=== PATIENT | male | born 1955 | race Caucasian/White ===

== ENCOUNTER 2016-11-02 16:07 | Inpatient (IN) | payer BC ==
--- NOTE | ~2016-11-02 | HP ---
History And Physical [id number] [facility] [place]. [address] NAME: RAMESH PATEL : 53 STATUS : ADM [place] PAT#: [id number] AGE: 61 ADM/REG DATE : 11/02/16 MR#: [id number] REPORT SERV DATE: 11/03/16 DICTATED BY: LUIZA MATIAS DATE: 11/03/16 REPORT STATUS : Draft TRANSCRIBED BY: SHELLY DATE: 11/03/16 DATE OF ADMISSION: 11/02/2016 Javier Anna M.D. CHIEF COMPLAINT: Chest pain. HISTORY OF PRESENT ILLNESS: This is a 61-year-old morbidly obese gentleman with a history of coronary artery disease, status post stent in 2002 to the left circumflex as well as recurrent DVTs and history of PE on chronic anticoagulation with Eliquis. He describes "burning" to his chest, noticed more with walking and exertion at his job over the last five days. Yesterday, the pain occurred again at work. He was scheduled to do some lab work for the [facility] here at [facility], and the spoke with the staff there, and they recommended him to go to the emergency department. The patient states the chest pain is substernal and does not radiate. He was given some nitroglycerin paste in the emergency department, and there has been no further reoccurrence of his symptoms. His troponins have been 0.05 x 3. The patient was seen by Dr. Anna in the office on 10/27/2016 with no complaints of chest pain at that time. He was started on hydrochlorothiazide as well as Cardura for better blood pressure control as well as the patient's chronic venous insufficiency and lymphedema. He states he has noticed a little improvement to his edema. He does state compliance with all of his medications including Eliquis, last dose was in the evening last night. MEDICAL HISTORY: 1. Recurrent DVTs as well as history of PE in 07/2015, on chronic Eliquis therapy. 2. Type 2 diabetes mellitus, insulin dependent. 3. Hypertension. 4. Mixed hyperlipidemia. 5. Coronary artery disease, status post drug-eluting stent to left circumflex in 2002. 6. Obstructive sleep apnea, compliant with CPAP therapy. 7. Chronic lower extremity lymphedema and venous insufficiency. 8. Morbid obesity with a BMI of 56. SURGICAL HISTORY: Right knee arthroscopy. HOME MEDICATIONS: Norvasc 5 every morning, Eliquis 5 b.i.d., aspirin 81 q.h.s., Lotensin 40 every morning, Cardura 4 mg q.h.s., hydrochlorothiazide 12.5 every morning, insulin Humulin R 200 units every morning and 230 units every evening, Afrin nasal spray p.r.n. congestion, Crestor 5 mg q.h.s., and ocean nasal spray as needed. ALLERGIES: NO KNOWN DRUG ALLERGIES. SOCIAL HISTORY: The patient is . He works for the [employer]. He quit smoking tobacco approximately 35 years ago. Denies alcohol or illicit drug use. He has four children. History And Physical [address] [address] NAME: RAMESH PATEL : 53 STATUS : ADM [place] PAT#: [id number] AGE: 61 ADM/REG DATE : 11/02/16 MR#: [id number] REPORT SERV DATE: 11/03/16 DICTATED BY: LUIZA MATIAS DATE: 11/03/16 REPORT STATUS : Draft TRANSCRIBED BY: SHELLY DATE: 11/03/16 FAMILY HISTORY: Father of an OK at age 54. REVIEW OF SYSTEMS: Negative except as indicated above. PHYSICAL EXAMINATION: VITAL SIGNS: Blood pressure 147/94, heart rate 70, temperature 98.2, pulse oximetry 95% room air. BMI 56.7. GENERAL: Well developed, well nourished, in no acute distress HEENT: Anicteric. Normal EOM. Head normocephalic. PERRLA, no xanthelasma. NECK: Supple. No JVD. Carotids normal without bruits. LUNGS: Clear to auscultation bilaterally anterior and posterior. Respirations even and unlabored. CARDIAC: S1, S2 regular rate and rhythm. No murmurs, rubs, or gallops. No chest wall tenderness. ABDOMEN: Normal bowel sounds. Soft and nontender to palpation. No masses or organomegaly. EXTREMITIES: 2+ to 3+ edema with signs of chronic venous insufficiency and excoriation particularly to the left lower extremity from scratching. No calf tenderness. SKIN: Warm and dry. Normal turgor. No pallor or cyanosis. MUSCULOSKELETAL: Moving all extremities x4. Normal muscle strength. NEURO/PSYCH: Alert and oriented with appropriate affect. LABORATORY DATA: White blood count 6.7, hemoglobin 15.3, hematocrit 44.9. Sodium 138, potassium 4.0, BUN 16, creatinine 0.8. Magnesium 1.7. Troponin 0.05 x 3. Chest x-ray shows no acute cardiopulmonary processes. EKGs interpreted by myself indicate normal sinus rhythm with nonspecific T-waves, no indication of ischemia. ASSESSMENT AND PLAN: 1. Exertional substernal chest pain in this 61-year-old male with a history of coronary artery disease, status post drug-eluting stent in 2002. His troponin has been only marginally elevated at 0.05, that has not significantly risen. His weight is 430 pounds preventing pursue of cardiac PET scanning. At this time, I recommend proceeding with a cardiac catheterization, but this will need to be done after the weekend as the patient did have a dose of Eliquis last evening. Dr. Baum to see the patient and discuss risks and benefits with him. Again, likely we will pursue cardiac catheterization on Sunday and hold Eliquis for one to two days prior. 2. History of coronary artery disease with stent in 2002. He does state compliance with his aspirin. He is not on a beta edgardo therapy, and he has only recently resumed his Crestor 5 mg q.h.s. We will plan to increase statin intensity. Continue aspirin. 3. History of deep venous thrombosis and pulmonary embolism. The patient does state absolute compliance with Eliquis therapy. There have been no signs of hypoxia along with this chest pain nor there have been any significant dyspnea at rest. 4. Chronic venous insufficiency and lymphedema. Recently started on hydrochlorothiazide History And Physical [address] [address] NAME: RAMESH PATEL : 53 STATUS : ADM [place] PAT#: [id number] AGE: 61 ADM/REG DATE : 11/02/16 MR#: [id number] REPORT SERV DATE: 11/03/16 DICTATED BY: LUIZA MATIAS DATE: 11/03/16 REPORT STATUS : Draft TRANSCRIBED BY: MODL DATE: 11/03/16 and Jean. We will continue. 5. Type 2 diabetes mellitus, insulin dependent. We will continue patient's home regimen of insulin as well as institute level 2 sliding-scale insulin protocol. 6. Hypertension, blood pressure appears controlled. Continue home medications. DBT/MODL Luiza Matias NP / [id number] CC: Josy March, MSN, LITIGATION LEGAL SECRETARY-BC Ramesh Scales M.D. Javier Anna M.D.
--- NOTE | ~2016-11-02 | DS ---
Discharge Summary [facility] [address] [place]. [address] NAME: RAMESH PATEL : 53 STATUS : DIS IN PAT#: [id number] AGE: 61 ADM/REG DATE : 11/02/16 MR#: [id number] REPORT SERV DATE: 11/14/16 DICTATED BY: SHAKIR FLANNERY DATE: 11/14/16 REPORT STATUS : Draft TRANSCRIBED BY: SHELLY DATE: 11/14/16 Data Collection from hospitalization DISCHARGE DIAGNOSES: 1. Stable angina. 2. Coronary artery disease, status post drug-eluting stent to the right coronary artery. 3. History of deep vein thrombosis/pulmonary embolus. 4. Hypertension. 5. Insulin-dependent diabetes mellitus. 6. Obstructive sleep apnea. 7. Chronic lower extremity lymphedema and venous insufficiency. 8. Morbid obesity. 9. Past history of tobacco use. CONSULTATIONS: None. PROCEDURES PERFORMED: 1. Cardiac catheterization and percutaneous coronary intervention on 11/06/2016. 2. Myocardial perfusion imaging study on 11/03/2016. MEDICATIONS: Norvasc 5 mg every morning, Eliquis 5 mg twice a day, aspirin 81 mg at bedtime, Lotensin 40 mg every morning, Coreg 3.125 mg twice a day, Plavix 75 mg daily, Cardura 4 mg at bedtime, hydrochlorothiazide 12.5 mg every morning, Humulin R 200 units subcutaneously every morning and 230 units subcutaneously at bedtime, Nitrostat 0.4 mg sublingually as needed, Afrin nasal spray one to two sprays nasally every 12 hours, Crestor 20 mg daily, [place] nasal spray to two sprays nasally every 12 hours as needed, and [id number] allergy tablet one tablet at bedtime. CONDITION AT DISCHARGE: Stable. DISPOSITION: The patient was discharged home on a low-cholesterol, low-sodium, 1800-calorie cardiac/diabetic diet with activities as instructed. He would follow up with Dr. Ramesh Scales on 11/14/2016. He would follow up with Dr. Parveen Wellington as instructed. He would follow up for PCI on 11/15/2016. He would stop his Eliquis on 11/13/2016, 11/14/2016, and 11/15/2016. HOSPITAL COURSE: This is a 61-year-old morbidly obese man who has a history of coronary artery disease and is status post stent in 2002 to the left circumflex as well as recurrent deep venous thromboses and a history of pulmonary embolus, on chronic anticoagulation with Eliquis. He described having some "burning" to his chest that he noticed more with walking and exertion at his job over the last five days prior to admission. On the day prior to this admission, the pain occurred again at work. He was scheduled to do some lab work for the [facility] here at [facility]. The staff there recommended that he go to the emergency department. He states that the chest pain was substernal and did not radiate. He was given some nitroglycerin paste in the emergency department. There had been no further recurrence of his symptoms. Troponin had been 0.05 x3. He had been seen by Dr. Anna in the office on 10/27/2016 with no complaints of chest pain at that time. He was started on hydrochlorothiazide as well as Cardura for better blood pressure control as well Discharge Summary [address] [address] NAME: RAMESH PATEL : 53 STATUS : DIS IN PAT#: [id number] AGE: 61 ADM/REG DATE : 11/02/16 MR#: [id number] REPORT SERV DATE: 11/14/16 DICTATED BY: SHAKIR FLANNERY DATE: 11/14/16 REPORT STATUS : Draft TRANSCRIBED BY: SHELLY DATE: 11/14/16 as chronic venous insufficiency and lymphedema. He said that he noticed a little improvement to his edema. He has compliance with all of his medications including Eliquis, according to the patient, he said his last dose was in the evening on the night prior to this admission. He was admitted to the hospital for further evaluation and treatment. Upon admission, his weight of 430 pounds prevented pursuit of cardiac PET scanning. It was felt that he would need to undergo a cardiac catheterization. Eliquis would be held one to two days prior. Aspirin was continued. He had recently resumed his Crestor. He was not on beta-edgardo therapy. We would increase his statin intensity. He had recently been started on hydrochlorothiazide and Cardura, and these were continued. Level 2 sliding scale insulin was started as well as the patient's home regimen of insulin. His blood pressure appears controlled. His home medications were continued. The following day, a myocardial perfusion imaging study was performed. This demonstrated inferior and apical ischemia. Medium-sized reversible inferior and apical defects were seen suggestive of ischemia. Post infusion left ventricular ejection fraction was 51%. On 11/04/2016, he had no chest pain or shortness of breath overnight. Hemoglobin A1c was 7.7. He was in a normal sinus rhythm. The next day, he had no chest pain overnight. He had no shortness of breath. He was in a normal sinus rhythm/sinus bradycardia on telemetry. Heparin drip was going to be started while Eliquis was on hold. Hydrochlorothiazide had not been restarted. His blood pressure was controlled. On 11/06/2016, he was taken to the cardiac manager labor delivery where he underwent the above-mentioned procedure. He tolerated this well, and there were no complications. The patient has obstructive coronary artery disease with 90% proximal RCA, 60%-70% mid LAD, and left main circumflex artery/left circumflex nonobstructive. He had PTCA with drug-eluting stent to the proximal RCA. We were going to consider a staged percutaneous coronary intervention to the LAD at a future date if his symptoms persist. Intervention was deferred at this time to minimize excessive radiation exposure. He had no chest pain or shortness of breath. He was going to undergo his staged percutaneous coronary intervention the following week. Discharge instructions were given. Due to his improved and stable condition, he was discharged home with the above-stated instructions. Information collected by: Morenita Lui I submit the above information as my discharge summary. TG/SHELLY Shakir Flannery MD / [id number] CC: Phyllis Lagos M.D.
[2016-11-02 13:56] LABS: BASOPHILS 0.3 %; BASOPHILS ABSOLUTE 0.02 10/3/uL (0.0-0.16); EOSINOPHILS 1.2 %; EOSINOPHILS ABSOLUTE 0.08 10/3/uL (0.0-0.53); HEMATOCRIT 44.9 % (40.0-51.0); HEMOGLOBIN 15.3 g/dL (13.6-17.8); IMMATURE GRANULOCYTES 0.4 %; IMMATURE GRANULOCYTES ABSOLUTE 0.03 10/3/uL (0.0-0.11); LYMPHOCYTES 17.2 %; LYMPHOCYTES ABSOLUTE 1.15 10/3/uL (0.67-4.30); MEAN CORPUS HGB CONC 34.1 g/dL (32.0-36.0); MEAN CORPUSCULAR HEMOGLOB 30.5 pg (26.0-34.0); MEAN CORPUSCULAR VOLUME 89.4 fL (80-100); MEAN PLATELET VOLUME 10.2 fL (9.2-13.0); MONOCYTES 7.8 %; MONOCYTES ABSOLUTE 0.52 10/3/uL (0.21-1.20); NEUTROPHILS 73.1 %; NEUTROPHILS ABSOLUTE 4.88 10/3/uL (2.02-8.40); PLATELET COUNT 198 10/3/uL (150-400); RBC DISTRIBUTION WIDTH 13.8 % (12.0-16.0); RED CELL COUNT 5.02 10/6/uL (4.7-6.1); WHITE BLOOD CELLS 6.7 10/3/uL (4.5-10.5)
[2016-11-02 13:59] LABS: MANUAL DIFF NO %
[2016-11-02 14:08] LABS: INTERNATIONAL NORMAL RATI 1.1 UNITS (-); PARTIAL THROMBO TIME 28.1 SEC (22.5-37.2); PROTIME (NOT ORD) 14.3 SEC (12.0-14.5)
[2016-11-02 14:11] LABS: BUN (BLOOD UREA NITROGEN) 16 MG/DL (6-23); CALCIUM, SERUM 8.8 MG/DL (8.5-10.4); CHLORIDE, SERUM 101 MMOL/L (96-112); CO2 (CARBON DIOXIDE) 28 MMOL/L (24-34); CREATININE 0.89 MG/DL (0.70-1.30); GFR AFRICAN AMERICAN 106 ML/MIN (>=60); GFR NON AFRICAN AMERICAN 92 ML/MIN (>=60); SODIUM, SERUM 138 MMOL/L (135-148)
[2016-11-02 14:12] LABS: CHEST PAIN PROFILE TAT 0 Hrs 20 Mins; GLUCOSE, SERUM 169 MG/DL (60-99); TROPONIN I 0.05 NG/ML (<0.05)
[~2016-11-02 16:07] MED LIST: AFRIN15 NAS; ASAB PO; BENZAPRIL PO; CLARIT10 PO; COUMADIN7.5 MG PO; CRESTOR40 MG PO; CRESTOR5 MG PO; DIABET2.5 PO; ELIQUIS 5 MG TAB5 MG PO; GLUCOPHAGE1000 MG PO; HALF81 PO; HUMULIN R U-500 SC; HUMULIN500CONC SC; L40 PO; LOTE40 PO; MOBIC7.5 PO; NORV5 PO; OCEAN NAS; OTC ALLERGY TABLET PO; TRILIPIX135 MG PO; WARFARIN PO; ZOCOR40 PO
[2016-11-02] MEDS ORDERED: CARDU2 PO (16:10)
[2016-11-02] MEDS ORDERED: HYDROCHLOROT12.5 MG PO (16:10)
[2016-11-05 07:34] LABS: BUN (BLOOD UREA NITROGEN) 14 MG/DL (6-23); CHLORIDE, SERUM 105 MMOL/L (96-112); CO2 (CARBON DIOXIDE) 29 MMOL/L (24-34); CREATININE 0.78 MG/DL (0.70-1.30); GFR AFRICAN AMERICAN 112 ML/MIN (>=60); GFR NON AFRICAN AMERICAN 97 ML/MIN (>=60); POTASSIUM, SERUM 4.1 MMOL/L (3.5-5.3); SODIUM, SERUM 139 MMOL/L (135-148)
[2016-11-05 07:35] LABS: GLUCOSE, SERUM 106 MG/DL (60-99)
[2016-11-05 07:44] LABS: BASOPHILS 0.4 %; BASOPHILS ABSOLUTE 0.02 10/3/uL (0.0-0.16); EOSINOPHILS 3.6 %; HEMATOCRIT 45.3 % (40.0-51.0); HEMOGLOBIN 15.2 g/dL (13.6-17.8); IMMATURE GRANULOCYTES 0.7 %; IMMATURE GRANULOCYTES ABSOLUTE 0.04 10/3/uL (0.0-0.11); LYMPHOCYTES 21.3 %; LYMPHOCYTES ABSOLUTE 1.18 10/3/uL (0.67-4.30); MEAN CORPUS HGB CONC 33.6 g/dL (32.0-36.0); MEAN CORPUSCULAR HEMOGLOB 30.1 pg (26.0-34.0); MEAN CORPUSCULAR VOLUME 89.7 fL (80-100); MEAN PLATELET VOLUME 10.2 fL (9.2-13.0); MONOCYTES 9.2 %; MONOCYTES ABSOLUTE 0.51 10/3/uL (0.21-1.20); NEUTROPHILS 64.8 %; NEUTROPHILS ABSOLUTE 3.58 10/3/uL (2.02-8.40); PLATELET COUNT 192 10/3/uL (150-400); RBC DISTRIBUTION WIDTH 13.7 % (12.0-16.0); RED CELL COUNT 5.05 10/6/uL (4.7-6.1); WHITE BLOOD CELLS 5.5 10/3/uL (4.5-10.5)
[2016-11-05 07:47] LABS: MANUAL DIFF NO %
[2016-11-06 06:13] LABS: BASOPHILS 0.5 %; BASOPHILS ABSOLUTE 0.03 10/3/uL (0.0-0.16); EOSINOPHILS 2.5 %; EOSINOPHILS ABSOLUTE 0.16 10/3/uL (0.0-0.53); HEMATOCRIT 44.3 % (40.0-51.0); HEMOGLOBIN 15.3 g/dL (13.6-17.8); IMMATURE GRANULOCYTES 0.8 %; IMMATURE GRANULOCYTES ABSOLUTE 0.05 10/3/uL (0.0-0.11); LYMPHOCYTES 20.8 %; LYMPHOCYTES ABSOLUTE 1.31 10/3/uL (0.67-4.30); MEAN CORPUS HGB CONC 34.5 g/dL (32.0-36.0); MEAN CORPUSCULAR HEMOGLOB 31.3 pg (26.0-34.0); MEAN CORPUSCULAR VOLUME 90.6 fL (80-100); MONOCYTES 7.8 %; MONOCYTES ABSOLUTE 0.49 10/3/uL (0.21-1.20); NEUTROPHILS 67.6 %; NEUTROPHILS ABSOLUTE 4.26 10/3/uL (2.02-8.40); PLATELET COUNT 184 10/3/uL (150-400); RBC DISTRIBUTION WIDTH 13.6 % (12.0-16.0); RED CELL COUNT 4.89 10/6/uL (4.7-6.1); WHITE BLOOD CELLS 6.3 10/3/uL (4.5-10.5)
[2016-11-06 06:20] LABS: MANUAL DIFF NO %
[2016-11-06 06:26] LABS: BUN (BLOOD UREA NITROGEN) 16 MG/DL (6-23); CALCIUM, SERUM 8.7 MG/DL (8.5-10.4); CHLORIDE, SERUM 104 MMOL/L (96-112); CHOL/HDL RATIO(NOT ORDER) 3.2 (0-5); CHOLESTEROL 112 MG/DL (< 200); CO2 (CARBON DIOXIDE) 25 MMOL/L (24-34); GFR AFRICAN AMERICAN 111 ML/MIN (>=60); GFR NON AFRICAN AMERICAN 96 ML/MIN (>=60); HDL CHOLESTEROL 35 MG/DL (> 39); LDL CHOLESTEROL 49 MG/DL (< 130); NON-HDL CHOLESTEROL 77 MG/DL (< 160); POTASSIUM, SERUM 3.9 MMOL/L (3.5-5.3); SODIUM, SERUM 139 MMOL/L (135-148)
[2016-11-06 06:28] LABS: GLUCOSE, SERUM 220 MG/DL (60-99); TRIGLYCERIDE 143 MG/DL (< 150)
[2016-11-06] MEDS ORDERED: COREG6 PO (13:05)
[2016-11-06] MEDS ORDERED: CRESTOR20 MG PO (13:06)
[2016-11-06] MEDS ORDERED: PLAVIX PO (13:07)
[2016-11-06] MEDS ORDERED: NITROSTAT0.4 MG SL (13:08)
[2016-11-06 15:55] LABS: HEMATOCRIT 44.4 % (40.0-51.0); HEMOGLOBIN 15.3 g/dL (13.6-17.8)
[2016-11-06 16:09] LABS: BUN (BLOOD UREA NITROGEN) 14 MG/DL (6-23); CALCIUM, SERUM 8.5 MG/DL (8.5-10.4); CHLORIDE, SERUM 106 MMOL/L (96-112); CHOL/HDL RATIO(NOT ORDER) 3.5 (0-5); CHOLESTEROL 112 MG/DL (< 200); CO2 (CARBON DIOXIDE) 23 MMOL/L (24-34); CREATININE 0.75 MG/DL (0.70-1.30); GFR AFRICAN AMERICAN 114 ML/MIN (>=60); GFR NON AFRICAN AMERICAN 98 ML/MIN (>=60); GLUCOSE, SERUM 186 MG/DL (60-99); HDL CHOLESTEROL 32 MG/DL (> 39); LDL CHOLESTEROL 41 MG/DL (< 130); NON-HDL CHOLESTEROL 80 MG/DL (< 160); POTASSIUM, SERUM 3.9 MMOL/L (3.5-5.3); SGPT(ALT) 47 U/L (5-65); SODIUM, SERUM 138 MMOL/L (135-148)
[2016-11-06 16:10] LABS: TRIGLYCERIDE 197 MG/DL (< 150)
[2016-11-14] MEDS ORDERED: VIAGRA25 PO (13:41)
== END 2016-11-06 17:56 | disposition home or self-care (01) | DRG 247 ==
LOC: ER 16:07 → CDU1 16:41 → SSU1 11-06 09:59
PROVIDERS: Emergency Medicine; Internal Medicine Cardiovascular Disease; Nurse Practitioner
PROC: 027034Z Dilation of Coronary Artery, One Artery with Drug-eluting Intraluminal Device, Percutaneous Approach (ICD-10-PCS; principal; 2016-11-06)
PROC: 4A023N7 Measurement of Cardiac Sampling and Pressure, Left Heart, Percutaneous Approach (ICD-10-PCS; 2016-11-06)
PROC: B2151ZZ Fluoroscopy of Left Heart using Low Osmolar Contrast (ICD-10-PCS; 2016-11-06)
PROC: B2111ZZ Fluoroscopy of Multiple Coronary Arteries using Low Osmolar Contrast (ICD-10-PCS; 2016-11-06)
DX: I25.118 Atherosclerotic heart disease of native coronary artery with other forms of angina pectoris (principal); Z99.81 Dependence on supplemental oxygen; Z68.43 Body mass index [BMI] 50.0-59.9, adult; I87.2 Venous insufficiency (chronic) (peripheral); E11.9 Type 2 diabetes mellitus without complications; I10 Essential (primary) hypertension; E66.01 Morbid (severe) obesity due to excess calories; E78.2 Mixed hyperlipidemia; G47.33 Obstructive sleep apnea (adult) (pediatric); Z87.891 Personal history of nicotine dependence; Z82.49 Family history of ischemic heart disease and other diseases of the circulatory system; Z79.01 Long term (current) use of anticoagulants; Z95.5 Presence of coronary angioplasty implant and graft; Z86.718 Personal history of other venous thrombosis and embolism; Z86.711 Personal history of pulmonary embolism
CPT/HCPCS: 71020; 78452; 80048; 80061; 82962; 83036; 83735; 84460; 84484; 85014; 85018; 85025; 85610; 85730; 93005; 93017; 93458; 99152; 99153; 99285; A9270-GY; A9502; C1725; C1769; C1874; C1887; C1894; C9600; J0153; J0583; J2250; J3010; Q9967

== ENCOUNTER 2016-11-16 10:54 | Inpatient (IN) | payer BC ==
[~2016-11-16 10:54] MED LIST changes: +CARDU2 PO; +COREG6 PO; +CRESTOR20 MG PO; +HYDROCHLOROT12.5 MG PO; +NITROSTAT0.4 MG SL; +PLAVIX PO; +VIAGRA25 PO
[2016-11-16 11:47] LABS: BASOPHILS 0.3 %; BASOPHILS ABSOLUTE 0.02 10/3/uL (0.0-0.16); EOSINOPHILS 1.8 %; EOSINOPHILS ABSOLUTE 0.11 10/3/uL (0.0-0.53); HEMOGLOBIN 15.8 g/dL (13.6-17.8); IMMATURE GRANULOCYTES 0.5 %; IMMATURE GRANULOCYTES ABSOLUTE 0.03 10/3/uL (0.0-0.11); LYMPHOCYTES ABSOLUTE 1.03 10/3/uL (0.67-4.30); MEAN CORPUS HGB CONC 34.3 g/dL (32.0-36.0); MEAN CORPUSCULAR HEMOGLOB 30.6 pg (26.0-34.0); MEAN CORPUSCULAR VOLUME 89.1 fL (80-100); MEAN PLATELET VOLUME 10.1 fL (9.2-13.0); MONOCYTES 9.6 %; MONOCYTES ABSOLUTE 0.58 10/3/uL (0.21-1.20); NEUTROPHILS 70.8 %; NEUTROPHILS ABSOLUTE 4.28 10/3/uL (2.02-8.40); PLATELET COUNT 219 10/3/uL (150-400); RBC DISTRIBUTION WIDTH 13.7 % (12.0-16.0); RED CELL COUNT 5.16 10/6/uL (4.7-6.1); WHITE BLOOD CELLS 6.1 10/3/uL (4.5-10.5)
[2016-11-16 11:48] LABS: MANUAL DIFF NO %
[2016-11-16 12:01] LABS: BUN (BLOOD UREA NITROGEN) 13 MG/DL (6-23); CALCIUM, SERUM 8.5 MG/DL (8.5-10.4); CHLORIDE, SERUM 104 MMOL/L (96-112); CHOL/HDL RATIO(NOT ORDER) 2.8 (0-5); CHOLESTEROL 106 MG/DL (< 200); CO2 (CARBON DIOXIDE) 30 MMOL/L (24-34); CREATININE 0.95 MG/DL (0.70-1.30); GFR AFRICAN AMERICAN 99 ML/MIN (>=60); GFR NON AFRICAN AMERICAN 85 ML/MIN (>=60); GLUCOSE, SERUM 254 MG/DL (60-99); HDL CHOLESTEROL 38 MG/DL (> 39); LDL CHOLESTEROL 42 MG/DL (< 130); NON-HDL CHOLESTEROL 68 MG/DL (< 160); POTASSIUM, SERUM 4.1 MMOL/L (3.5-5.3); SODIUM, SERUM 139 MMOL/L (135-148); TRIGLYCERIDE 131 MG/DL (< 150)
[2016-11-17 05:39] LABS: HEMATOCRIT 43.6 % (40.0-51.0); HEMOGLOBIN 14.4 g/dL (13.6-17.8); MEAN CORPUSCULAR HEMOGLOB 30.3 pg (26.0-34.0); MEAN PLATELET VOLUME 10.2 fL (9.2-13.0); PLATELET COUNT 177 10/3/uL (150-400); RBC DISTRIBUTION WIDTH 13.8 % (12.0-16.0); RED CELL COUNT 4.75 10/6/uL (4.7-6.1); WHITE BLOOD CELLS 5.7 10/3/uL (4.5-10.5)
[2016-11-17 05:42] LABS: MANUAL DIFF YES %; MEAN CORPUSCULAR VOLUME 91.8 fL (80-100)
[2016-11-17 05:58] LABS: BUN (BLOOD UREA NITROGEN) 11 MG/DL (6-23); CALCIUM, SERUM 8.2 MG/DL (8.5-10.4); CHLORIDE, SERUM 107 MMOL/L (96-112); CHOLESTEROL 90 MG/DL (< 200); CREATININE 0.69 MG/DL (0.70-1.30); GFR AFRICAN AMERICAN 118 ML/MIN (>=60); GFR NON AFRICAN AMERICAN 102 ML/MIN (>=60); GLUCOSE, SERUM 227 MG/DL (60-99); LDL CHOLESTEROL 32 MG/DL (< 130); NON-HDL CHOLESTEROL 60 MG/DL (< 160); POTASSIUM, SERUM 3.9 MMOL/L (3.5-5.3); SODIUM, SERUM 140 MMOL/L (135-148); TRIGLYCERIDE 142 MG/DL (< 150)
[2016-11-17 06:00] LABS: CO2 (CARBON DIOXIDE) 25 MMOL/L (24-34); HDL CHOLESTEROL 30 MG/DL (> 39)
[2016-11-17 07:17] LABS: BAND NEUTROPHILS 1 %; EOSINOPHILS 1 %; EOSINOPHILS ABSOLUTE (CALC) 0.06 10/3/uL (0.0-0.53); LYMPHOCYTES 19 %; LYMPHOCYTES ABSOLUTE (CALC) 1.08 10/3/uL (0.67-4.30); MONOCYTES 9 %; MONOCYTES ABSOLUTE (CALC) 0.51 10/3/uL (0.21-1.20); NEUTROPHILS ABSOLUTE (CALC) 4.05 10/3/uL (2.02-8.40); PLATELET ESTIMATE ADQ (ADEQUATE); SEGMENTED NEUTROPHIL (0) 70 %; TOTAL NUCLEATED CELLS 100
[2016-11-17 07:18] LABS: RBC MORPHOLOGY NORM (NORMAL)
[2016-11-18 05:11] LABS: BASOPHILS 0.2 %; BASOPHILS ABSOLUTE 0.01 10/3/uL (0.0-0.16); EOSINOPHILS 2.2 %; EOSINOPHILS ABSOLUTE 0.13 10/3/uL (0.0-0.53); HEMATOCRIT 42.2 % (40.0-51.0); HEMOGLOBIN 14.6 g/dL (13.6-17.8); IMMATURE GRANULOCYTES 0.5 %; IMMATURE GRANULOCYTES ABSOLUTE 0.03 10/3/uL (0.0-0.11); LYMPHOCYTES 15.8 %; LYMPHOCYTES ABSOLUTE 0.95 10/3/uL (0.67-4.30); MEAN CORPUS HGB CONC 34.6 g/dL (32.0-36.0); MEAN CORPUSCULAR VOLUME 89.6 fL (80-100); MEAN PLATELET VOLUME 9.6 fL (9.2-13.0); MONOCYTES 11.5 %; MONOCYTES ABSOLUTE 0.69 10/3/uL (0.21-1.20); NEUTROPHILS 69.8 %; PLATELET COUNT 186 10/3/uL (150-400); RBC DISTRIBUTION WIDTH 13.5 % (12.0-16.0); RED CELL COUNT 4.71 10/6/uL (4.7-6.1)
[2016-11-18 05:12] LABS: MANUAL DIFF NO %
[2016-11-18 05:20] LABS: BUN (BLOOD UREA NITROGEN) 9 MG/DL (6-23); CALCIUM, SERUM 8.2 MG/DL (8.5-10.4); CHLORIDE, SERUM 106 MMOL/L (96-112); CO2 (CARBON DIOXIDE) 25 MMOL/L (24-34); CREATININE 0.71 MG/DL (0.70-1.30); GFR AFRICAN AMERICAN 117 ML/MIN (>=60); GFR NON AFRICAN AMERICAN 101 ML/MIN (>=60); GLUCOSE, SERUM 224 MG/DL (60-99); POTASSIUM, SERUM 3.8 MMOL/L (3.5-5.3); SODIUM, SERUM 141 MMOL/L (135-148)
== END 2016-11-18 11:40 | disposition home or self-care (01) | DRG 247 ==
LOC: CORLMH 10:54 → SSU1 11:03
PROVIDERS: Internal Medicine Cardiovascular Disease
PROC: 027034Z Dilation of Coronary Artery, One Artery with Drug-eluting Intraluminal Device, Percutaneous Approach (ICD-10-PCS; principal; 2016-11-16)
PROC: B2111ZZ Fluoroscopy of Multiple Coronary Arteries using Low Osmolar Contrast (ICD-10-PCS; 2016-11-16)
PROC: 02C03ZZ Extirpation of Matter from Coronary Artery, One Artery, Percutaneous Approach (ICD-10-PCS; 2016-11-16)
DX: I25.118 Atherosclerotic heart disease of native coronary artery with other forms of angina pectoris (principal); Z68.43 Body mass index [BMI] 50.0-59.9, adult; I10 Essential (primary) hypertension; E66.01 Morbid (severe) obesity due to excess calories; E78.00 Pure hypercholesterolemia, unspecified; E78.2 Mixed hyperlipidemia; E11.9 Type 2 diabetes mellitus without complications; G47.33 Obstructive sleep apnea (adult) (pediatric); I73.9 Peripheral vascular disease, unspecified; Z87.891 Personal history of nicotine dependence; Z86.711 Personal history of pulmonary embolism
CPT/HCPCS: 80048; 80061; 82962; 85025; 85347; 93005; 93458; 99152; 99153; A9270-GY; C1724; C1725; C1769; C1874; C1887; C1894; C9602; J2250; J3010; Q9967